=== PATIENT | female | born 1960 | race Caucasian/White ===

== ENCOUNTER 2017-12-25 06:57 | Day surgery (SDC) | payer BC ==
[~2017-12-25 06:57] MED LIST: ACETAMINOPHEN 1,000 MG/100 ML BTL IV ONE; CEFAZOLIN 2 Gram 2 GM/50 ML BAG IVPB ONE; FAMOTIDINE 20MG TABLET PO ONE; MECLIZINE 25 MG TABLET PO ONE; METOCLOPRAMIDE 10 MG TABLET PO ONE
[2017-12-25] MEDS ORDERED: *PACU ONLY* KETAMINE HCL 10 MG/ML (20ML) VIAL IV ONE (06:58)
[2017-12-25] MEDS ORDERED: PROPOFOL 10 MG/ML VIAL IV ONE (06:58)
[2017-12-25] MEDS ORDERED: EPINEPHRINE 1 MG/ML AMPUL SQ ONE (06:58)
[2017-12-25] MEDS ORDERED: METHYLPREDNISOLONE 40MG/VIAL IM ONE (06:58)
[2017-12-25] MEDS ORDERED: MORPHINE SULFATE PF 10MG/10ML VIAL IV ONE (06:58)
[2017-12-25] MEDS ORDERED: DEXAMETHASONE 4 MG/ML 1ML VIAL IVP ONE (06:58)
[2017-12-25] MEDS ORDERED: FENTANYL PF 100MCG/2ML VIAL IV ONE (06:58)
[2017-12-25] MEDS ORDERED: BUPIVACAINE 0.5% W/EPI MPF 30 ML VIAL IVP ONE (06:58)
[2017-12-25] MEDS ORDERED: KETOROLAC 30 MG/ML VIAL IVP ONE (06:58)
[2017-12-25] MEDS ORDERED: ONDANSETRON HCL IV 4 MG/2 ML VIAL IVP ONE (06:58)
[2017-12-25] MEDS ORDERED: MIDAZOLAM HCL 2MG/2ML VIAL IV ONE (06:58)
--- NOTE | 2017-12-26 07:42 | Operative Note ---
DATE: 12/25/2017. PREOPERATIVE DIAGNOSIS: RIGHT SHOULDER IMPINGEMENT. POSTOPERATIVE DIAGNOSES: 1. SYNOVITIS OF THE RIGHT SHOULDER. 2. PROFOUND EXTERNAL IMPINGEMENT, RIGHT SHOULDER. 3. ARTHROSIS OF THE RIGHT DISTAL CLAVICLE. PROCEDURES: 1. ARTHROSCOPY WITH SYNOVECTOMY, RIGHT SHOULDER. 2. RIGHT SHOULDER OPEN ACROMIOPLASTY, CORACOACROMIAL LIGAMENT RESECTION, AND SUBACROMIAL BURSECTOMY. 3. RIGHT SHOULDER DISTAL CLAVICLE RESECTION. STAFF SURGEON: Asad Butt M.D. ANESTHESIA: General. PREPARATION: ChloraPrep. INDIVIDUAL CONSIDERATIONS: None. DESCRIPTION OF PROCEDURE: The patient was taken to the operating room and placed supine on the operating table. She had a successful induction of a general anesthetic. She was then placed in a semi-seated beach chair position, and her right arm and shoulder were prepped and draped in the usual fashion. The patient had posterior portal identified for arthroscopy. The skin was infiltrated with 0.5% Marcaine with epinephrine prior. An 18-gauge spinal needle was placed in the joint, and the joint was inflated with normal saline with a 60 mL syringe. A stab wound was made, a blunt-tipped trocar for the scope was easily placed in the joint, and the joint was inflated with normal saline. An anterior accessory portal was then made just inferior to the intact long head of the biceps tendon in a retrograde fashion with a Wissinger cher, and the joint was irrigated out. The patient had what appeared to be a normal glenohumeral joint and a normal long head. The labrum was intact, but she had quite a bit of synovitis, especially posteriorly. This was debrided with a shaver. The subscapularis was normal. No loose bodies were seen inferiorly, and no significant synovitis was seen inferiorly. After irrigation and performing the synovectomy, the portals were closed with breana. The patient had an anterior approach to the subacromial space and distal clavicle. The skin was again infiltrated with 0.5% Marcaine with epinephrine prior. Sharp dissection was carried down through the skin and subcutaneous tissue. Small veins were coagulated with a Bovie. An anterior deltoid interval was developed. Care was taken not to split the deltoid more than about 4.0 cm distal to the anterior tip of the acromion to prevent injury to the axillary nerve. Once in the subacromial space, she had a tight space with downsloping acromion spurs at the acromioclavicular joint. The deltoid was then taken subperiosteally off the anterior aspect of the acromion, over the top of the intact coracoacromial ligament, and off the anterior aspect of the degenerated distal clavicle. The coracoacromial ligament was resected with a Bovie. The distal clavicle was resected with an oscillating saw, taking just under 1.0 cm. The patient had, again, a downsloping acromion with spur and an anterior acromioplasty was performed, taking a little less than 1.0 cm and tapering to a wedge posteromedially to include the spurs at the acromioclavicular joint. The undersurface was then smoothed off with a rasp. Thick bursitis was debrided out. I now had a good look at the rotator cuff. The supraspinatus and all of the rotator cuff tendons were otherwise intact. Near the supraspinatus insertion, a broad base about 2.0 to 2.5 cm, it was a bit macerated and almost had the appearance that it had been beaten with a hammer. However, there was no tear to repair. After irrigation, I placed the shoulder through a full range of motion to ensure there was no further impingement. The deltoid was reattached to the remaining acromion with multiple interrupted #2 Vicryl going directly through the bony acromion. The periosteal cuff of the distal clavicle was closed with a running #2 Vicryl. The anterior deltoid interval was closed with running #1 Vicryl. The subcutaneous layer was closed with #2-0+ Vicryl. The skin was closed with running #2-0 Quill. A total of 15 mL of 0.5% Marcaine with epinephrine along with 10 mg of morphine and 40 mg of Depo Medrol was injected into the subacromial space through a sterile 18-gauge needle, and a sterile bulky compressive dressing and sling were applied. The patient tolerated the procedures well, and needle and sponge counts were correct. Estimated blood loss was minimal, and she was taken back to the recovery room in good condition. There were no complications. JOB NUMBER: [id number] cc: Erika Torres
== END 2017-12-25 11:35 | disposition home or self-care (01) ==
LOC: SUR 06:57
PROVIDERS: ATTEND Orthopaedic Surgery
DX: M75.41 Impingement syndrome of right shoulder (principal); M65.811 Other synovitis and tenosynovitis, right shoulder; M19.011 Primary osteoarthritis, right shoulder
CPT/HCPCS: 29820; 23415; 23120; 01630; 64415; J1885; J2405; J3010; J0690; J0171; J1030